=== PATIENT | male | born 1990 | race Caucasian/White ===

== ENCOUNTER 2025-05-12 14:30 | Emergency (ER) | payer BC, SELFPAY ==
[2025-05-12] VITALS (16 sets, daily range): BP systolic 116–138; BP diastolic 84–99; PULSE 55–97; TEMP 37; O2SAT 95–98; BMI 25.8
--- OUTSIDE RECORDS SUMMARY | 2025-05-12 14:40 | XMS_ITS | Patient Health Record ---
[facility] Address [address] [place] [address] Care Team Providers Care Job Honer Name Role Phone Sofía Blackwood Primary Care Provider Allergies No Known Allergies Reason For Referral No Information Medications Medication SIG (Take, Route, Fr equency, Duration) Notes Start Date End Date Status Omeprazole 20 MG 1 tablet Orally Once a day; Duration: 30 day(s) 10/19/2018 Active Social History Tobacco Use: Social History Observation Description Date Details (start date - stop date) Never Smoker NA - NA Tobacco Screen: Question Answer Notes Are you a: never smoker Alcohol Screening: Question Answer Notes Did you have a drink containing alcohol in the p ast year? Yes How many drinks did you have on a typical day when you were drinking in the past year? 1 or 2 (0 points) How often did you have six o r more drinks on one occasion in the past year? Never (0 points) Points 0 Interpretation Negative Problems Problem Type SNOMED Code ICD Code Onset Dates Problem Status W/U Status Risk Notes Problem GERD without esophagitis (K21.9) Active confirmed Problem Gastroesophageal reflux disease, esophagitis presence not specified (K21.9) Active confirmed Problem Gastroesophageal reflux disease, esophagitis presence not specified (K21.9) Active confirmed Plan Of Treatment Next Appt Details Provider Name:Adria Bautista, 05/15/2025 09:30:00 AM, [address] [place], [address], Insurance Providers Payer Name Payer Address Payer Phone Subscriber Number Group Number Insured Name Patient Relationship to Insured Coverage Start Date Coverage End Date ANTHEM Primary [address] [place] [phone] [id number] PRETTY SIGNH Spouse - patient is the spouse of the insured 0 [employer] [address] [address] [place] [address] [id number] PRETTY SINGH Spouse - patient is the spouse of the insured 0 Medical (General) History Medical History History ICD Code Esophageal reflux
--- NOTE | 2025-05-12 15:14 | XR_ITS ---
[place] [id number] Patient Name: ALEXIS SINGH MRN: [id number] date: 1990 Sex: M Assigned Patient Location: ER Current Patient Location: Accession/Order Number: [id number] Exam Date: 05/12/2025 17:10 Report Date: 05/12/2025 17:10 At the request of: STEPHANIE ROBLEDO Procedure: XR chest 1V Plain film chest Single view HISTORY: Chest pain COMPARISON: None FINDINGS: SUPPORT DEVICES: None POSTSURGICAL CHANGES: None HEART: Within normal limits PULMONARY LORIE: Within normal limits MEDIASTINUM: Unremarkable LUNGS AND PLEURA: No acute lung process, pleural effusion or pneumothorax identified. BONY STRUCTURES: Intact ADDITIONAL FINDINGS None XR/XR chest 1V IMPRESSION: No acute process. Impression dictated by: Romeo Jensen M.D. 05/12/2025 5:10 PM Dictation Location: [place] [address] Electronically authenticated by: [id number] Y Date: 05/12/2025 17:10
--- NOTE | 2025-05-12 15:17 | ECG_ITS ---
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 Measurements Intervals Dowling Rate: 85 P: 49 MO: 152 QRS: 33 QRSD: 84 T: 31 QT: 350 QTc: 393 Interpretive Statements 1100 Sinus rhythm 9110 normal ECG No previous ECG available for comparison Electronically Signed On 05-13-2025 17:24:29 EDT by DARCI KRAMER M.D.
--- NOTE | 2025-05-12 15:18 | ED.GENADUL1 ---
HPI HPI - General Adult General Chief complaint: Chest Pain Stated complaint: HYPERTENSION Time Seen by Provider: 05/12/25 15:03 Source: patient Mode of arrival: walk-in Limitations: no limitations History of Present Illness HPI narrative: Patient is a 35-year-old male with no past medical history other than vaping who presents with concerns of chest pain and some shortness of breath. 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 He has noticed some chest soreness that is nonspecific and shortness of breath with activity. He denies any history of DVT or PE denies any recent surgery long travels or flights. He denies any cardiac history in his mother or father. He reports being concerned about his health recently as he has not seen a family doctor in some time but is established with the family health services in [facility]. Patient states he was taking his blood pressure yesterday at [email or web address] but noticed it was elevated with a systolic of 149. Patient states he then turned to [employer] for his symptoms and elevated blood pressure and thought it would be best to get checked out in the ER. Upon further discussion he denies any fever or abdominal pain he is currently without any chest pain or shortness of breath his recent month has been complicated by some morning nausea and vomiting and constipation. Patient states this lasted for several days and he took laxatives which then helped him go to the bathroom and he has been going regularly but not as normal as before. He denies any illicit drug use he denies any blood or pus in his stools. Patient states he drinks alarge jug of water at work and feels that multiple times in order to stay hydrated. He denies feeling any symptoms today but did not know if he should wait and to see his family doctor. Location: Reports chest Radiation: Reports non-radiation Quality: Reports other (moves around. ) Relieving factors: Reports none Exacerbating factors: Reports none Associated symptoms: Reports loss of appetite, nausea/vomiting and shortness of breath; Denies cough, diaphoresis, fever/chills, headaches, rash, seizure or syncope Treatments prior to arrival: Reports none Related Data Home Medications �Medication �Instructions �Recorded �Confirmed omeprazole 20 mg capsule,delayed 20 mg PO DAILY 05/12/25 05/12/25 release Previous Rx's �Medication �Instructions �Recorded ondansetron HCl 4 mg tablet 4 mg PO Q6H PRN nausea and 05/12/25 vomiting #12 tabs Allergies Allergy/AdvReac Type Severity Reaction Status Date / Time No Known Drug Allergies Allergy Verified 05/12/25 14:38 Review of Systems ROS Constitutional Denies: fever or chills Eyes Denies: change in vision Ears, nose, mouth, and throat Denies: throat pain, neck pain or throat swelling Cardiovascular Reports: chest pain; Denies: palpitations, edema, swelling of feet/ankles or lightheadedness Respiratory Reports: shortness of breath; Denies: cough or wheezing Gastrointestinal Reports: nausea, vomiting and diarrhea; Denies: abdominal pain or difficulty swallowing Genitourinary Denies: painful urination Musculoskeletal Denies: back pain, neck pain, extremity pain or extremity swelling Integumentary/Breast Denies: rash, itching or redness Neurological Denies: headache or numbness in extremities Psychiatric Denies: anxiety, mood swings or panic attacks Endocrine Reports: fatigue; Denies: excessive urination or excessive thirst Hematologic/Lymphatic Denies: easy bruising PFSH PFSH Social History Little interest or pleasure in doing things: not at all Feeling down, depressed, or hopeless: not at all Exam Narrative Exam Narrative: Nurses notes and vital signs reviewed and patient is not hypoxic. General: The patient appears well and in no apparent distress. Patient is resting comfortably on cart. Skin: Warm, dry, no pallor noted. Head: Normocephalic, atraumatic Neck: Supple, trachea mid-line, no tenderness, no lymphadenopathy Eye: Pupils are equal, round and reactive to light, EOMI Ears, Nose, Mouth, and Throat: TM are clear, normal light reflex, oral mucosa is moist, no posterior oropharynx erythema or hypertrophy, uvula is mid-line Cardiovascular: Regular Rate and Rhythm Respiratory: Patient is in no distress, no accessory muscle use, lungs are clear to auscultation, no wheezing, rales or rhonchi. Chest Wall: no tenderness Back: non-tender, no CVA tenderness Musculoskeletal: normal ROM, no tenderness, no swelling GI: Normal bowel sounds, no tenderness to palpation, no masses appreciated. No rebound, guarding, or rigidity noted. Neurological: A&O x4 Psychiatric: Cooperative Constitutional Vital Signs, click to edit/add: Last Vital Signs Temp 98.6 F 05/12/25 14:33 Pulse 89 05/12/25 14:33 Resp 18 05/12/25 14:33 BP 138/99 H 05/12/25 14:33 Pulse Ox 97 05/12/25 14:33 O2 Del Method Room Air 05/12/25 14:33 Course Vital Signs Vital signs: Vital Signs Temperature 98.6 F 05/12/25 14:33 Pulse Rate 89 05/12/25 14:33 Respiratory Rate 18 05/12/25 14:33 Blood Pressure 138/99 H 05/12/25 14:33 Pulse Oximetry 97 05/12/25 14:33 Oxygen Delivery Method Room Air 05/12/25 14:33 Temperature 98.6 F 05/12/25 14:33 Pulse Rate 89 05/12/25 14:33 Respiratory Rate 18 05/12/25 14:33 Blood Pressure 138/99 H 05/12/25 14:33 Pulse Oximetry 97 05/12/25 14:33 Oxygen Delivery Method Room Air 05/12/25 14:33 Medical Decision Making MDM Narrative Medical decision making narrative: Discussed patient's symptoms EKG within normal limits he is currently asymptomatic he reports a few weeks prior to arrival of constipation and then diarrhea following laxative use. He works in a hot environment and has consumed large quantities of water we recommend checking his electrolytes. We discussed his cardiac concerns which are extremely unlikely given his age, lack of obesity but risk factor for tobacco use discussed. Patient states he is considering quitting nicotine as he previously had smoked cigarettes. He is aware there may be some underlying pulmonary symptoms that could be relating to his breathing from history of smoking and tobacco use. He denies any pleuritic pain and has very stable vitals today with blood pressure within normal limits. We discussed his laboratory studies and chest x-ray Labs unremarkable without electrolyte abnormality chest x-ray was clear formal radiologist interpretation pending. We discussed his symptoms and have recommended outpatient follow-up with his family doctor for further evaluation. A prescription of Zofran was provided in case he has any more a.m. nausea and vomiting. The patient is to followup with primary care physician in next 2-3 days or to return to the emergency department should any of the signs or symptoms worsen or new symptoms develop. Patient had questions answered. The patient agrees with the following Diagnosis and Treatment plan and the patient will be discharged home. Lab Data Lab results reviewed: Yes I reviewed the patient's lab results Labs: Lab Results 05/12/25 Range/Units 15:27 WBC 7.0 (4.0-11.0) 10^3/uL RBC 5.66 (4.70-6.10) 10^6/uL Hgb 15.6 (14.0-18.0) g/dL Hct 45.6 (42.0-54.0) % MCV 80.6 (80.0-94.0) fL MCH 27.6 (25.9-34.0) pg MCHC 34.2 (29.9-35.2) g/dL RDW 11.9 (11.0-15.0) % Plt Count 306 (150-450) 10^3/uL MPV 10.3 (9.5-13.5) fL Neut % (Auto) 58.9 (43.0-75.0) % Lymph % (Auto) 31.0 (20.5-60.0) % Woodruff % (Auto) 6.4 (1.7-12.0) % Eos % (Auto) 2.8 (0.9-7.0) % Baso % (Auto) 0.6 (0.2-2.0) % Neut # (Auto) 4.1 (1.4-6.5) 10^3/uL Lymph # (Auto) 2.2 (1.2-3.8) 10^3/uL Woodruff # (Auto) 0.5 (0.3-0.8) 10^3/uL Eos # (Auto) 0.2 (0.0-0.7) 10^3/uL Baso # (Auto) 0.0 (0.0-0.1) 10^3/uL Abs Immat Gran (auto) 0.02 (0.00-0.03) 10^3/uL Imm/Tot Granulo (auto) 0.3 (0.0-0.5) % Sodium 140 (136-145) mmol/L Potassium 4.5 (3.5-5.1) mmol/L Chloride 104 (98-107) mmol/L Carbon Dioxide 29.9 (21.0-32.0) mmol/L Anion Gap 10.6 BUN 13.0 (7.0-18.0) mg/dL Creatinine 1.14 (0.70-1.30) mg/dL Est GFR ( Amer) >60 (>=60 mL/min/1.73m^2) Est GFR (Non-Af Amer) >60 (>=60 mL/min/1.73m^2) BUN/Creatinine Ratio 11.4 Glucose 93 (74-106) mg/dL Calcium 9.1 (8.5-10.1) mg/dL Total Bilirubin 0.5 (0.2-1.0) mg/dL AST 15 (15-37) U/L ALT 22 (16-63) U/L Alkaline Phosphatase 70 (46-116) U/L Troponin I High Sens <4.0 L (4.0-76.1) pg/mL Total Protein 7.0 (6.4-8.2) g/dL Albumin 4.1 (3.4-5.0) g/dL Globulin 2.9 g/dL Albumin/Globulin Ratio 1.4 Lipase 20.0 (16.0-77.0) U/L Imaging Data Chest x-ray: Attestation: I personally reviewed and interpreted this imaging study as follows: My impression: Preliminary review 1 view chest x-ray no pneumothorax no obvious infiltrate no cardiomegaly. ECG Data Attestation: I personally reviewed and interpreted this ECG as follows: Interpretation: EKG interpretation: Emergency Department physician interpretation, normal sinus rhythm 85 , no ectopy, no ST segment elevation, normal axis. Discharge Plan Discharge Chief Complaint: Chest Pain Clinical Impression: Chest pain, Nausea & vomiting Patient Disposition: Home, Self-Care Time of Disposition Decision: 16:08 Condition: Good Mode of Transportation: Private Vehicle Prescriptions / Home Meds: New ondansetron HCl 4 mg tablet 4 mg PO Q6H PRN (Reason: nausea and vomiting) Qty: 12 0RF No Action omeprazole 20 mg capsule,delayed release(DR/EC) 20 mg PO DAILY Print Language: Syriac Instructions: Chest Pain (ED) Referrals: FAMILY[facility] [Primary Care Provider] - As soon as possible
[2025-05-12 15:30] LABS: Hematocrit 45.6 % (42.0-54.0); Hemoglobin 15.6 g/dL (14.0-18.0); Immature Granulocytes Abs Auto 0.02 10^3/uL (0.00-0.03); Immature Granulocytes Pct Auto 0.3 % (0.0-0.5); Lymphocytes Absolute Auto 2.2 10^3/uL (1.2-3.8); Mean Corpuscular HGB Conc 34.2 g/dL (29.9-35.2); Mean Corpuscular Hemoglobin 27.6 pg (25.9-34.0); Mean Corpuscular Volume 80.6 fL (80.0-94.0); Platelet Count 306 10^3/uL (150-450); Red Blood Count 5.66 10^6/uL (4.70-6.10); White Blood Count 7.0 10^3/uL (4.0-11.0)
[2025-05-12 15:50] LABS: Alanine Aminotransferase 22 U/L (16-63); Albumin Globulin Ratio 1.4; Albumin Level 4.1 g/dL (3.4-5.0); Alkaline Phosphatase 70 U/L (46-116); Anion Gap 10.6; Aspartate Amino Transferase 15 U/L (15-37); Blood Urea Nitrogen 13.0 mg/dL (7.0-18.0); Calcium 9.1 mg/dL (8.5-10.1); Carbon Dioxide 29.9 mmol/L (21.0-32.0); Chloride 104 mmol/L (98-107); Estimated GFR (African America >60 (>=60 mL/min/1.73m^2); Estimated GFR (Non-African Ame >60 (>=60 mL/min/1.73m^2); Globulin 2.9 g/dL; Glucose 93 mg/dL (74-106); Potassium 4.5 mmol/L (3.5-5.1); Sodium 140 mmol/L (136-145); Total Protein 7.0 g/dL (6.4-8.2)
[2025-05-12 15:53] LABS: Lipase 20.0 U/L (16.0-77.0)
== END 2025-05-12 16:15 | disposition home or self-care (01) ==
PROVIDERS: Personal Emergency Response Attendant; Emergency Provider Emergency Medicine
DX: R07.9 Chest pain, unspecified (principal); R11.2 Nausea with vomiting, unspecified; F17.290 Nicotine dependence, other tobacco product, uncomplicated; R06.02 Shortness of breath
CPT/HCPCS: 36415; 71045; 80053; 83690; 84484; 85025; 93005; 99285